=== PATIENT | male | born 1985 | race Caucasian/White ===

== ENCOUNTER 2017-10-06 16:38 | Emergency (ER) | payer MEDICAID ==
[~2017-10-06] VITALS: Ht 177.8 cm; Wt 86.4 kg
[2017-10-06 16:40] VITALS: Ht 177.8 cm; Wt 86.4 kg
[2017-10-06 18:29] VITALS: BP 119/79
== END 2017-10-06 18:29 | disposition home or self-care (01) ==
LOC: ED 16:38
DX: S61.012A Laceration without foreign body of left thumb without damage to nail, initial encounter (principal); W26.8XXA Contact with other sharp object(s), not elsewhere classified, initial encounter; Y93.89 Activity, other specified; Y92.89 Other specified places as the place of occurrence of the external cause; Y99.8 Other external cause status
CPT/HCPCS: J2001

== ENCOUNTER 2018-05-14 15:05 | Emergency (ER) | payer MEDICAID ==
[~2018-05-14] VITALS: Ht 177.8 cm; Wt 88.9 kg
[2018-05-14 15:10] VITALS: Ht 177.8 cm; Wt 88.9 kg
[2018-05-14 16:37] VITALS: BP 111/68
== END 2018-05-14 16:38 | disposition home or self-care (01) ==
LOC: ED 15:05
DX: J06.9 Acute upper respiratory infection, unspecified (principal); H92.03 Otalgia, bilateral

== ENCOUNTER 2018-09-25 12:45 | Emergency (ER) | payer MEDICAID | END 2018-09-25 13:11 | disposition left against medical advice (07) | LOC: ED 12:45 | DX: Z53.21 Procedure and treatment not carried out due to patient leaving prior to being seen by health care provider (principal) ==

== ENCOUNTER 2018-09-25 17:11 | Emergency (ER) | payer MEDICAID ==
[~2018-09-25] VITALS: Ht 177.8 cm; Wt 88.0 kg
[2018-09-25 17:34] VITALS: Ht 177.8 cm; Wt 88.0 kg
[2018-09-25 18:58] VITALS: BP 123/82
== END 2018-09-25 18:58 | disposition home or self-care (01) ==
LOC: ED 17:11
DX: S61.411A Laceration without foreign body of right hand, initial encounter (principal); W26.8XXA Contact with other sharp object(s), not elsewhere classified, initial encounter; Y93.89 Activity, other specified; Y92.098 Other place in other non-institutional residence as the place of occurrence of the external cause; Y99.8 Other external cause status
CPT/HCPCS: 90715

== ENCOUNTER 2018-10-15 19:59 | Emergency (ER) | payer MEDICAID ==
[~2018-10-15] VITALS: Ht 177.8 cm; Wt 88.5 kg
[2018-10-15 20:01] VITALS: BP 119/77; Ht 177.8 cm; Wt 88.5 kg
== END 2018-10-16 | disposition left against medical advice (07) ==
LOC: ED 19:59
DX: Z53.21 Procedure and treatment not carried out due to patient leaving prior to being seen by health care provider (principal)

== ENCOUNTER 2019-08-11 18:54 | Emergency (ER) | payer SELFPAY ==
[~2019-08-11] VITALS: Ht 177.8 cm; Wt 94.8 kg
[2019-08-11 19:02] VITALS: Ht 177.8 cm; Wt 94.8 kg
[2019-08-11 20:03] VITALS: BP 115/53
== END 2019-08-11 20:30 | disposition home or self-care (01) ==
LOC: ED 18:54
DX: S93.401A Sprain of unspecified ligament of right ankle, initial encounter (principal); W01.10XA Fall on same level from slipping, tripping and stumbling with subsequent striking against unspecified object, initial encounter; Y93.89 Activity, other specified; Y92.89 Other specified places as the place of occurrence of the external cause; Y99.8 Other external cause status
CPT/HCPCS: Q0092